=== PATIENT | male | born 2005 | race African-American/Black ===

== ENCOUNTER 2025-04-06 15:17 | Emergency (ER) | payer OTHER, SELFPAY ==
[2025-04-06] VITALS (7 sets, daily range): BP systolic 116–153; BP diastolic 70–88; PULSE 66–90; RESP 16–20; TEMP 37; O2SAT 98–100; BMI 23.6
--- NOTE | 2025-04-06 16:38 | EDS_ITS ---
HPI History of Present Illness Chief Complaint: Male Pain/Injury PFSH PFS Medical History no medical history Allergy/AdvReac Type Severity Reaction Status Date / Time Penicillins (PCN) Allergy Severe Angioedema Verified 04/06/25 15:21 Family History no significant family his Surgical History no surgical history Social History Smoking Status: Current some day smoker tobacco type: e-cigarettes EXAM Physical Exam Const Vital Signs: 04/06/25 15:18 04/06/25 16:18 04/06/25 16:55 Temperature 98.6 F Temperature Source Oral Pulse Rate 67 90 66 Respiratory Rate 16 Blood Pressure 124/70 H 146/83 H 146/82 H Blood Pressure Mean 88 104 103 Pulse Ox 99 100 100 Oxygen Delivery Method Room Air Room Air Room Air 04/06/25 18:00 04/06/25 19:00 04/06/25 20:50 Temperature Temperature Source Pulse Rate 90 82 66 Respiratory Rate 20 H Blood Pressure 153/88 H 125/78 H 116/82 H Blood Pressure Mean 109 93 93 Pulse Ox 98 Oxygen Delivery Method Room Air [facility] MDM MDM Narrative Medical decision making narrative: HISTORY OF PRESENT ILLNESS: Chief complaint: Abdominal pain 20-year-old male with no significant past medical history presents with right lower quad abdominal pain and testicular pain as well as nausea and vomiting. Notes he is sexually active 1 partner protected is not concerned at STDs. Denies urinary complaints. Notes severe right lower quad abdominal pain nausea and vomiting developed today. Denies chest pain. Denies shortness of breath. Denies diarrhea or constipation. Denies history of abdominal surgeries. His last bowel movement yesterday. Denies any melena or hematochezia. REVIEW OF SYSTEMS: Pertinent positives: Abdominal pain, testicle pain, nausea vomit Pertinent negatives: As per HPI PHYSICAL EXAM: Nursing triage notes reviewed, Vital signs reviewed Constitutional: please see mdm HENT: MMM Eyes: Pupils equal round and reactive to light, Extraocular muscles intact Neck: No stridor, no JVD, full neck ROM Lungs: Clear to auscultation, No wheezing or rales. No increased work of breathing, no conversational dyspnea, no accessory muscle use, no nasal flaring. No respiratory distress noted Heart: Regular rate and rhythm, No murmurs, No rubs and No gallops, 2+ distal pulses (radial, femoral, posterior tibial) in all extremities Abdomen: Soft, rigidity, rebound or guarding, no obvious peritoneal signs, no palpable pulsatile abdominal masses, no auscultated abdominal bruit : No CVAT, normal testicular lie, intact cremasteric reflex, no scrotal edema or erythema, no TTP over the epididymis, no obvious hernias noted Extremities: No edema Neuro: No new focal neurological deficits, cranial nerves II through XII intact, 5/5 strength in all present extremities. Intact sensation to light touch in all present extremities, 2+ reflexes bilateral patella tendons. Skin: No rash or lesions noted MEDICAL DECISION MAKING: Chief Complaint: please see HPI External records reviewed: Reviewed prior imaging studies Factors affecting care: none Social determinants of health: none History obtained from others: none Consults: none [facility] Narrative: The patient was initially hemodynamically stable, afebrile and nontoxic- appearing. Right lower quadrant TTP. No obvious abnormality right lower quadrant TTP, I considered the following differential diagnosis: AAA, small bowel obstruction, abdominal perforation, appendicitis, pancreatitis, hepatobiliary pathology (acute cholecystitis), mesenteric ischemia, pathology (ie nephrolithiasis, pyelonephritis), testicular torsion, orchitis, epididymitis. I obtained a broad lab and imaging workup to further elucidate etiology of patient's complaints. Initially treat the patient 1 L normal saline, 15 mg of IV Toradol and 4 mg of IV Zofran. ALL IMAGES (IF OBTAINED) HAVE BEEN PERSONALLY REVIEWED AND INTERPRETED BY MYSELF. CT scan abdomen pelvis showed a 3 mm kidney stone at the right UVJ likely cause of the patient's pain Testicular ultrasound showed no evidence of torsion, orchitis, epididymitis CBC without leukocytosis, severe anemia, no thrombocytopenia. CMP without evidence of acute kidney injury, significant electrolyte abnormality, anion gap to suggest end organ hypo-perfusion, no evidence of metabolic acidosis with a normal bicarbonate, no evidence of hepatobiliary obstructive pathology. Urinalysis shows no evidence of urinary inflammation suggestive of UTI The synthesis of the patient's history, physical exam, labs images suggest nephrolithiasis potential etiology on reevaluation. Comfortable. This should pass on its own. Time ibuprofen instructions were given. Increase fluid instructions were given. Follow-up with PCP given as well. Strict return precautions discussed The patient and/or family, caregivers express understanding. The patient and/or family, caregivers agrees with the plan. Shared decision making: I will have a discussion with the patient and or visitors regarding risk/benefits of further testing or admission. They will be made aware of of the risk/benefits inherent in this decision they will be given the opportunity to voice understanding. Total critical care time today provided was at least 0 minutes. This excludes separately billable procedures. Critical care time (if documented) is secondary to the patient having high probability of clinically significant/life threatening deterioration in the patient's condition which required my urgent intervention. Impression: 1. Acute abdominal pain 2. Right testicular pain Dispo: Discharge home This note was generated with [employer] dictation software. It may contain incorrect words, spelling, and punctuation that were not noted in review of the chart prior to signing. Lab Data Labs: Laboratory Results - last 24 hr 04/06/25 04/06/25 16:25 17:30 WBC 9.9 RBC 5.69 Hgb 15.0 Hct 47.3 MCV 83.1 MCH 26.4 L MCHC 31.7 L RDW Std Deviation 41.6 RDW Coeff of Jane 13.7 Plt Count 273 MPV 10.3 Immature Gran % (Auto) 0.500 Neut % (Auto) 83.0 H Lymph % (Auto) 12.0 L [place] % (Auto) 4.0 Eos % (Auto) 0.1 Baso % (Auto) 0.4 Absolute Neuts (auto) 8.2 H Absolute Lymphs (auto) 1.19 Nucleated RBC % 0 Sodium 138 Potassium 4.3 Chloride 102 Carbon Dioxide 24.4 Anion Gap 12 BUN 10 Creatinine 1.21 H Estim Creat Clear Calc 105.11 Est GFR (MDRD) Non-Af 87 BUN/Creatinine Ratio 8.5 L Glucose 137 H Calcium 9.3 Total Bilirubin 0.63 AST 28 ALT 21 Alkaline Phosphatase 82 Total Protein 7.8 Albumin 4.4 Globulin 3.5 Albumin/Globulin Ratio 1.3 Urine Color Yellow Urine Clarity Clear Urine pH 7.0 Ur Specific [place] 1.005 Urine Protein 30 H Urine Glucose (UA) Normal Urine Ketones Negative Urine Occult Blood 250 H Urine Nitrite Negative Urine Bilirubin Negative Urine Urobilinogen Normal Ur Leukocyte Esterase Negative Urine RBC 25-50 SEEN Urine WBC 0-5 SEEN Ur Squamous Epith Cells 0-5 SEEN Urine Bacteria 0 SEEN Urine Mucus 0 SEEN Radiography Diagnostic Testing: Clinical Impression(s) from Imaging Studies Abdomen/Pelvis CT 04/06/25 16:43 IMPRESSION: 3 mm right UVJ obstructing calculus with mild hydronephrosis and delayed nephrogram. Reading Location: [facility] Testicular Ultrasound 04/06/25 16:43 IMPRESSION: NORMAL SCROTAL ULTRASOUND. Reading Location: [facility] Discharge Plan Triage Chief Complaint: Male Pain/Injury Other Complaint: Abd Pain ED Provider: Jarad Saenz Dx/Rx/DC Orders Primary Care Provider: Care Physician,No Primary Referrals: [facility] Doctor,Out of [Non-Staff] - Print Language: Brazilian
--- NOTE | 2025-04-06 16:43 | US_ITS ---
PROCEDURE: TESTICULAR WITH ARTERIAL FLOW 04/06/2025 REASON FOR EXAM: RIGHT TESTICULAR PAIN TECHNIQUE: Parada scale imaging of the scrotal contents. COMPARISON: None FINDINGS: RIGHT testicle: 3.8 x 2.8 x 2.07 Homogeneous echotexture. No intratesticular mass. Right epididymis: Unremarkable. LEFT testicle: 4.3 x 2.9 x 2.1 cm Homogeneous echotexture. No intratesticular mass. Left epididymis: Unremarkable. Other findings: No hydrocele or large varicocele. US/Testicular with Arterial Flow IMPRESSION: NORMAL SCROTAL ULTRASOUND. Reading [facility]
--- NOTE | 2025-04-06 16:43 | CT_ITS ---
PROCEDURE: ABDOMEN/PELVIS W IV CONT ONLY 04/06/2025 REASON FOR EXAM: RIGHT LOWER QUADRANT ABDOMINAL PAIN TECHNIQUE: Abdomen and pelvis CT with intravenous contrast. Coronal and Sagittal reconstruction series were provided. PATIENT PREPARATION: Per protocol ORAL CONTRAST TYPE: None. AMOUNT: mL CONTRAST: Omnipaque 350 VOLUME: 100 mL Not Provided Gauge IV One or more dose reduction techniques were used (e.g., Automated exposure control, adjustment of the mA and/or kV according to patient size, use of iterative reconstruction technique. COMPARISON: None FINDINGS: Lung bases: Unremarkable Liver: Homogeneous attenuation. Subcentimeter low-attenuation lesion, hepatic dome, too small to characterize likely benign. Gallbladder: No ductal dilation. Gallbladder is unremarkable. Spleen: Normal size. Pancreas: Normal size without evidence of mass surrounding inflammation or ductal dilation. Adrenals: Unremarkable Kidneys: 3 mm right UVJ obstructing calculus with mild hydronephrosis and delayed right nephrogram. No left calculus or hydronephrosis. Bladder: Urinary bladder is unremarkable. Reproductive Organs: Unremarkable. Bowel: Stomach is unremarkable. No bowel dilation or wall thickening. Moderate colonic stool. Appendix: Normal appendix. Lymph nodes: No suspicious lymph node enlargement. Vasculature: The abdominal aorta and IVC are normal. Peritoneum / Retroperitoneum: No ascites. No pneumoperitoneum. Bones: No suspicious osseous lesion. Soft tissue: Unremarkable. CT/Abdomen/Pelvis W IV Cont ONLY IMPRESSION: 3 mm right UVJ obstructing calculus with mild hydronephrosis and delayed nephro gram. Reading [facility]
[2025-04-06] MEDS: Ondansetron 4 MG/2 ML Vial IV (16:48)
[2025-04-06] MEDS: Ketorolac 15 MG/ML Vial IV (16:49)
[2025-04-06] MEDS: 0.9% Normal Saline (1000mL) 1,000 ML 999 ML IV (16:50)
[2025-04-06 16:56] LABS: Absolute Lymphocyte Count 1.19 X10^3/uL (0.83-4.51); Absolute Neutrophil Count 8.2 X10^3/uL (2.0-7.7); Basophil# 0.04 X10^3/uL; Basophil% 0.4 % (0-1); Eosinophil# 0.01 X10^3/uL; Eosinophils% 0.1 % (0-5); Hematocrit 47.3 % (40-54); Lymphocyte # 1.19 X10^3/ul (0.83-4.51); Mean Corp Hgb Conc 31.7 g/dL (32-36); Mean Corpuscular Hgb 26.4 pg (27.0-32.0); Mean Corpuscular Volume 83.1 fL (80-94); Mean Platelet Vol. 10.3 fl (6.2-12.0); NRBC Flagged by Analyzer 0 % (0-5); Platelet Count 273 K/mm3 (150-450); RBC Distribution Width CV 13.7 % (11.6-14.6); RBC Distribution Width SD 41.6 fl (35.1-43.9); Red Blood Count 5.69 M/mm3 (4.6-6.2); White Blood Count 9.9 K/mm3 (4.4-11.0)
[2025-04-06 17:25] LABS: ALB/GLOB Ratio 1.3 RATIO (0.9-2.4); AST(SGOT) 28 U/L (<=37); Alanine Aminotransfer ALT/SGPT 21 U/L (<=46); Albumin, Serum 4.4 g/dL (3.5-5.0); Alkaline Phosphatase 82 U/L (40-129); Anion Gap 12 (5-15); BUN 10 mg/dL (4-19); BUN/Creat Ratio 8.5 RATIO (10-20); Calcium,Total 9.3 mg/dL (7.6-11.0); Carbon Dioxide 24.4 mmol/L (21.0-32.0); Chloride 102 mmol/L (98-108); Creatinine, Serum 1.21 mg/dL (0.70-1.20); EST Glomerular Filtration Rate 87 (>60); Estimated Creatinine Clearance 105.11 ml/min (50-250); Globulin 3.5 g/dL (2.2-4.2); Glucose 137 mg/dL (70-99); Potassium 4.3 mmol/L (3.3-5.1); Protein, Total 7.8 g/dL (5.9-8.4); Sodium Level 138 mmol/L (133-145); Total Bilirubin 0.63 mg/dL (0.00-1.30)
[2025-04-06 17:37] LABS: Bacteria 0 SEEN /hpf (None Seen); Mucous, Urine 0 SEEN /hpf (<or=2+)
[2025-04-06 18:32] LABS: Glucose, Dipstick Normal (Normal); Ketone-Dipstick Negative (Negative); Leukocyte Esterase-Dipstick Negative /ul (Negative); Nitrite-Dipstick Negative (Negative); Occult Blood-Urine 250 /ul (Negative); Protein-Dipstick 30 mg/dl (Negative); Specific Gravity, Urine 1.005 (1.002-1.030); Urine Bilirubin Dipstick Negative (Negative); Urine Urobilinogen Normal (Normal)
[2025-04-06 18:33] LABS: Color, Urine Yellow (Yellow); Urine Clarity Clear (Clear)
[2025-04-06 20:31] LABS: Red Blood Cells-Urine 25-50 SEEN /hpf (0-5); Squamous Epithelial Cells - UA 0-5 SEEN /hpf (0-5)
[2025-04-06 20:32] LABS: White Blood Cells 0-5 SEEN /hpf (0-5)
== END 2025-04-06 21:55 | disposition home or self-care (01) ==
PROVIDERS: Emergency Provider Emergency Medicine; Visit Provider Emergency Medicine
DX: R10.9 Unspecified abdominal pain (principal); N50.811 Right testicular pain; F17.290 Nicotine dependence, other tobacco product, uncomplicated
CPT/HCPCS: 74177; 76870; 80053; 81001; 85025; 93976; 96361; 96374; 96375; 96376; 99283; Q9967; A4216; J2405